=== PATIENT | male | born 1955 | race Caucasian/White ===

== ENCOUNTER 2022-05-20 23:04 | Emergency (ER) | payer MEDICARE ==
[~2022-05-20] VITALS: Ht 172.7 cm; Wt 63.5 kg
[2022-05-21 00:12] VITALS: BP 149/70
[2022-05-21] MEDS ORDERED: LIDOCAINE HCL-MPF 2% 5ML VIAL ONE (00:23)
[2022-05-21] MEDS ORDERED: IBUP-1493 PO (00:36)
[2022-05-21] MEDS ORDERED: CEPH500B PO (00:36)
[2022-05-21] MEDS ORDERED: TETANUS/DIPHTHERIA TOXOID [ADULT] 0.5 ML VIAL IM ONE ×2 (00:59→01:00)
[2022-05-21] MEDS ORDERED: DIPH,PERTUSS(ACELL),TET VAC/PF 0.5 ML VIAL IM ONE (01:00)
== END 2022-05-21 01:19 | disposition home or self-care (01) ==
LOC: EDH 23:04
DX: S01.81XA Laceration without foreign body of other part of head, initial encounter (principal); F10.129 Alcohol abuse with intoxication, unspecified; X58.XXXA Exposure to other specified factors, initial encounter; Y93.89 Activity, other specified; Y92.89 Other specified places as the place of occurrence of the external cause; Y99.8 Other external cause status
CPT/HCPCS: 99284; 12013; 70450; 72125; 90714; 90471; J3490; 12002; 90715